=== PATIENT | female | born 1935 | race Caucasian/White ===

== ENCOUNTER 2016-12-08 12:42 | Outpatient (CLI) | payer OTHER ==
--- NOTE | 2016-12-08 14:10 | DIAGNOSTIC IMAGING REPORT ---
PROCEDURE: MG BILATERAL SCREENING W/CAD INDICATION: Screening. Family history breast carcinoma (mother). TECHNIQUE: Bilateral CC and MLO digital views. COMPARISON: Compared to 12/08/2015, 12/04/2014, and 09/17/2013. FINDINGS: Computer-aided detection applied. Mildly dense with a few dystrophic calcifications. Findings suggest a 6 mm stellate density medial right breast (only seen on MLO view). Possible associated dystrophic calcifications. Findings suggest regional microcalcifications in the medial left breast (seen only on CC view). IMPRESSION: 1. Findings suggest development of a 6 mm stellate density in the medial right breast. Consider mass or architectural distortion. Further mammographic views (true lateral view, CC and MLO spot compression views) recommended. In addition, right breast ultrasound is recommended. 2. Findings suggest development of regional microcalcifications in the medial left breast. While these may be artifactual, further views are recommended ( true lateral view, internally exaggerated CC view, CC and MLO magnification views). RESULT CODE: 0- Incomplete; needs additional evaluation. A. A negative report should not delay biopsy if a dominant or clinically suspicious mass is present. 10-15% of cancers are not identified by x-ray. B. A negative report may reinforce clinical impression. C. Adenosis and dense breasts may obscure an underlying neoplasm. D. False positive reports average 6-10%. E.. A yearly screening mammogram is recommended. A reminder letter will be scheduled.
== END 2016-12-08 23:00 ==
LOC: MAM SRH 12:42
DX: Z12.31 Encounter for screening mammogram for malignant neoplasm of breast (principal); Z80.3 Family history of malignant neoplasm of breast

== ENCOUNTER 2016-12-17 13:51 | Outpatient (CLI) | payer OTHER ==
--- NOTE | 2016-12-17 15:48 | DIAGNOSTIC IMAGING REPORT ---
PROCEDURE: MG BILATERAL DIAGNOSTIC W/CAD INDICATION: EVALUATE DENSITY IN R BREAST, MICRO CALCIFICATIONS ON LEFT TECHNIQUE: Standard CC and MLO views of each breast. Bilateral CC spot compressions (left with magnification), cleavage view, bilateral MLO spot compressions, and bilateral direct lateral mammograms. CAD was used. COMPARISON: 12/08/2016, 12/08/2015, 12/04/2014, 08/24/2011 FINDINGS: Mammograms: Right breast: With focal spot compression, the density seen on the CC view dissipates. There is normal glandular tissue and no suspicious underlying density or architectural distortion. A few punctate benign calcifications are present, chronic. Left breast: With spot magnification, dense intersections of Rodrigo's ligaments are evident, previously flagged as calcifications. There is a single punctate benign-appearing calcification, chronic. No suspicious clustered microcalcifications were visible. Ultrasound: Deferred. IMPRESSION: 1. With special right breast mammographic views, no persistent density is evident. Benign calcifications are found. 2. With left breast spot magnification, no suspicious clustered microcalcifications are seen. 3. The patient can return to yearly screening mammography. Findings and recommendations were discussed with the patient. RESULT CODE: 2- Benign findings.
== END 2016-12-17 23:00 ==
LOC: MAM SRH 13:51
DX: R92.0 Mammographic microcalcification found on diagnostic imaging of breast (principal)